=== PATIENT | female | born 1990 | race Caucasian/White ===

== ENCOUNTER → 2022-06-24 09:19 | Outpatient (BNVA) | payer MEDICAID, SELFPAY | PROVIDERS: PCP Physician Assistant; Visit Provider Physician Assistant Surgical ==

== ENCOUNTER 2022-07-19 09:12 | Outpatient (REF) | payer MEDICAID, SELFPAY ==
--- NOTE | ~2022-07-19 | XR_ITS ---
EXAMINATION: XR CHEST CLINICAL INFORMATION: Bariatric service evaluation. E66.01. COMPARISON: None available. TECHNIQUE: 2 views of the chest were obtained. FINDINGS: The lungs are clear. The vascularity is normal. There is mamillation right anteromedial hemidiaphragm. The costophrenic sulci are clear. The heart is normal in size. The hilar and mediastinal contours and visualized bony structures are unremarkable. XR/XR chest 2V IMPRESSION: Unremarkable examination.
[2022-07-19 10:24] LABS: MANUAL DIFF FLAG NO
[2022-07-19 10:43] LABS: Basophils Percent Auto 0.4 % (0-2); Eosinophils Absolute Auto 0.1 X10*3/uL (0.0-0.4); Eosinophils Percent Auto 1.7 % (0-4); Hematocrit 39.7 % (37.0-47.0); Hemoglobin 12.1 g/dl (12.0-16.0); Imm Gran Abs Auto 0.03 X10*3/uL (0.00-0.03); Imm Gran Pct Auto 0.4 % (0.0-0.4); Lymphocytes Absolute Auto 2.6 X10*3/uL (1.2-4.9); Lymphocytes Percent Auto 34.6 % (20-40); Mean Corpuscular HGB Conc 30.5 g/dl (31.0-35.0); Mean Corpuscular Hemoglobin 22.5 pg (27.0-33.0); Mean Corpuscular Volume 73.9 fL (80.0-98.0); Mean Platelet Volume 9.8 fL (9.4-12.3); Monocytes Absolute Auto 0.5 X10*3/uL (0.1-1.2); Monocytes Percent Auto 6.9 % (2-11); Neutrophils Absolute Auto 4.2 x10*3/uL (2.0-8.3); Platelet Count 332 X10*3/uL (160-400); Red Blood Count 5.37 X10*6/uL (4.20-5.50); Red Cell Distribution Width 16.2 % (11.0-16.0); White Blood Count 7.4 X10*3/uL (4.8-10.8)
[2022-07-19 10:51] LABS: Estimated Average Glucose 114 mg/dL; Hemoglobin A1c % 5.6 %
[2022-07-19 11:43] LABS: Alanine Aminotransferase 16 U/L (0-31); Alkaline Phosphatase 58 U/L (39-117); Anion Gap 11 (12-20); Aspartate Amino Transferase 15 U/L (5-31); Bilirubin Total 0.5 mg/dL (0.0-1.0); Blood Urea Nitrogen 12 mg/dL (9-16); C Reactive Protein 1.48 mg/dL (< or = 0.50); Calcium 9.3 mg/dL (8.4-10.2); Carbon Dioxide 27 mmol/L (22-29); Chloride 107 mmol/L (96-108); Cholesterol 155 mg/dL; Estimated Glomerular Filt Rate > 60; Glucose Random 89 mg/dL (60-115); HDL Cholesterol 53 mg/dL; Iron 60 mcg/dL (30-160); LDL Cholesterol Calculated 90 mg/dl; Percent Iron Saturation 17 % (15-50); Potassium 4.5 mmol/L (3.3-5.1); Sodium 140 mmol/L (135-145); Total Iron Binding Capacity 346 mcg/dL (228-428); Total Protein 7.3 g/dL (6.5-8.0); Triglycerides 61 mg/dL; Unsaturated Iron Binding 286 ug/dL
[2022-07-19 12:13] LABS: Ferritin 13 ng/mL (10-122); Folate 16.9 ng/mL (> or = 4.0); Insulin 16 uU/mL (2-29); Vitamin B12 328 pg/mL (200-900); Vitamin D 25-OH Total 23.7 ng/mL (>30)
[2022-07-20 18:54] LABS: Calcium (PTHI) 9.3 mg/dL (8.6-10.2); PTHI 55 pg/mL (16-77)
[2022-07-22 13:54] LABS: H Pylori Breath Test Negative (Negative)
[2022-07-23 16:28] LABS: Zinc 80 mcg/dL (60-130)
[2022-07-25 04:33] LABS: Vitamin B1 11 nmol/L (8-30)
[2022-07-27 16:28] LABS: Vitamin A 35 mcg/dL (38-98)
== END 2022-07-19 09:13 | disposition home or self-care (01) ==
LOC: HO.XRAY 09:12
PROVIDERS: PCP Physician Assistant; Visit Provider Physician Assistant Surgical
DX: E66.01 Morbid (severe) obesity due to excess calories (principal); R06.83 Snoring
CPT/HCPCS: 36415; 71046; 80053; 80061; 82306; 82607; 82728; 82746; 83013; 83036; 83525; 83540; 83970; 84425; 84443; 84590; 84630; 85025; 86140; 99202; 99211

== ENCOUNTER → 2022-07-30 10:14 | Outpatient (REF) | payer MEDICAID, SELFPAY ==
--- NOTE | 2022-07-30 10:23 | ECG_ITS ---
Test Reason : OBESITY Blood Pressure : / mmHG Vent. Rate : 059 BPM Atrial Rate : 059 BPM P-R Int : 148 ms QRS Dur : 096 ms QT Int : 408 ms P-R-T Axes : 044 005 019 degrees QTc Int : 403 ms Sinus bradycardia Otherwise normal ECG No previous ECGs available Referred By: Kingston Braun Electronically Signed By:JASMYN FREEMAN MD
== END ==
LOC: HO.CARD 10:14
PROVIDERS: PCP Physician Assistant; Visit Provider Surgery
DX: E66.01 Morbid (severe) obesity due to excess calories (principal)
CPT/HCPCS: 93005

== ENCOUNTER → 2022-08-06 09:50 | Outpatient (BNVA) | payer MEDICAID, SELFPAY | PROVIDERS: PCP Physician Assistant; Referring Provider Physician Assistant Surgical; Visit Provider Counselor Mental Health ==

== ENCOUNTER 2022-08-09 09:07 | Outpatient (REF) | payer MEDICAID, SELFPAY ==
--- NOTE | ~2022-08-09 | US_ITS ---
EXAMINATION: US COMPLETE ABDOMEN WITH LIVER ELASTOGRAPHY CLINICAL INFORMATION: Obesity. COMPARISON: None available. TECHNIQUE: Real-time imaging of the abdominal viscera. Noninvasive ultrasound liver fibrosis assessment is performed using Nora ElastPQ point quantification shear wave elastography (2D-SWE) with a C5-2 MHz transducer. Multiple elastography samples are obtained. FINDINGS: PANCREAS: Limited. The visualized pancreatic head and body are normal in appearance. The remainder of the pancreas is obscured from visualization by the overlying bowel gas. ABDOMINAL AORTA: The proximal, middle, and distal aortic segments are normal in caliber. INFERIOR VENA CAVA: Visualized portions are normal. LIVER: Normal. The liver demonstrates normal size, contour and echogenicity. No focal lesion or intrahepatic biliary duct dilatation. The right lobe measures 13.6 cm in length. The left lobe measures 7.8 cm in length. Portal flow is towards the liver (hepatopetal). Shear wave liver elastography median stiffness is 1.73 m/s (reference: normal median stiffness is 1.3 m/s or less). IQR/median stiffness to assess sampling precision is 0.24 (reference: good quality data set is IQR/median stiffness of 0.15 or less). GALLBLADDER: Normal. The gallbladder is physiologically distended without evidence of stones, sludge, polyps, wall thickening or pericholecystic fluid. COMMON BILE DUCT: Normal in caliber measuring 0.5 cm in diameter. RIGHT KIDNEY: Normal. No hydronephrosis. No renal calculi or focal parenchymal lesions. The kidney measures 10.5 cm in maximum dimension. LEFT KIDNEY: At the interpolar aspect, a 6 mm nonobstructing calculus is seen. There is mild pelviectasis, without elis hydronephrosis. No renal calculi or focal parenchymal lesions. The kidney measures 10.9 cm in maximum dimension. SPLEEN: Normal. The spleen measures 11.9 cm in maximum dimension. FREE FLUID: None. US/US abdomen comp w elastography IMPRESSION: 1. Liver elastography: Although measurements are suggestive of compensated advanced chronic liver disease, there is statistical variability of the sampling which decreases accuracy. 2. A 6 mm nonobstructing left renal calculus is seen. 3. Technically limited ultrasound examination of the pancreas. REFERENCE: Society of Radiologists in Ultrasound Liver Stiffness Thresholds (2020): LIVER STIFFNESS THRESHOLDS: *Liver Stiffness equal or less than 1.3 m/s: High probability of being normal. *Liver Stiffness less than 1.7 m/s: In the absence of other known clinical signs, rules out compensated advanced chronic liver disease. *Liver Stiffness 1.7-2.1 m/s: Suggestive of compensated advanced chronic liver disease but need further test for confirmation. *Liver Stiffness over 2.1 m/s: Rules in compensated advanced chronic liver disease. *Liver Stiffness over 2.4 m/s: Suggestive of clinically significant portal hypertension. QUALITY OF DATA SET: *IQR/Median value equal or less than 0.15 implies a quality data set. *IQR/Median value over 0.15 implies a poor quality data set. SIGNIFICANT CHANGE FROM PRIOR EXAM: Significant change if liver stiffness measurement is 10% or greater from prior exam. OTHER CONSIDERATIONS: The stage of liver fibrosis may be overestimated in the setting of acute hepatitis, liver inflammation, elevated liver function tests, hepatic vascular congestion, obstructive cholestasis, non-fasting state, and infiltrative diseases such as amyloidosis and lymphoma. In some patients with NAFLD, the liver stiffness thresholds for compensated advanced chronic liver disease may be lower. In causes other than viral hepatitis and NAFLD, liver stiffness thresholds are not well established.
== END 2022-08-09 09:08 | disposition home or self-care (01) ==
LOC: HO.US 09:07
PROVIDERS: PCP Physician Assistant; Visit Provider Physician Assistant Surgical
DX: E66.01 Morbid (severe) obesity due to excess calories (principal)
CPT/HCPCS: 76705; 76981

== ENCOUNTER → 2022-08-19 10:35 | Outpatient (BNVA) | payer MEDICAID, SELFPAY | PROVIDERS: PCP Physician Assistant; Referring Provider Physician Assistant Surgical; Visit Provider Dietitian, Registered | DX: E66.9 Obesity, unspecified (principal); Z71.3 Dietary counseling and surveillance | CPT/HCPCS: 97802 ==

== ENCOUNTER 2022-08-30 15:00 | Outpatient (AMB) | payer OTHER, SELFPAY ==
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
== END 2022-08-30 15:30 | disposition home or self-care (01) ==
LOC: HO.HBST 15:07
PROVIDERS: PCP Physician Assistant; Visit Provider Counselor Mental Health
DX: F43.9 Reaction to severe stress, unspecified (principal); F50.9 Eating disorder, unspecified; Z63.8 Other specified problems related to primary support group
CPT/HCPCS: 90832

== ENCOUNTER → 2022-08-30 15:00 | Outpatient (BNVA) | payer OTHER, SELFPAY | PROVIDERS: PCP Physician Assistant; Visit Provider Counselor Mental Health ==

== ENCOUNTER 2022-09-07 13:21 | Outpatient (AMB) | payer MEDICAID, SELFPAY ==
--- NOTE | 2022-09-07 13:30 | MHC.OFFVISWM ---
Intake VS Expanded 09/07/22 13:47 Height 5 ft 3 in Weight 240 lb BMI 42.5 BP 113/72 Blood Pressure Location Rt brachial Blood Pressure Position Sitting Pulse 68 Pulse Source Pulse Oximeter Temp 98.1 F Temperature Source Temporal Artery Scan Pulse Oximetry 100 Oxygen Delivery Method Room Air Body Fat 112.6 Body Fat Percentage 47.0 Free Fat Mass 127.2 Muscle Mass 120.8 Visceral Mass 12.0 Water Mass 91.2 BMR 1,826 Intake Visit Reasons: (OV) F/U SWL Wire Coating Machine Operator Required: Yes Wire Coating Machine Operator Name: office cmi Allergies No Known Allergies Allergy (Verified 09/07/22 13:43) Medication List - Last Reconciled 09/07/22 by RAJANI Marx cholecalciferol (vitamin D3) 125 mcg PO DAILY 90 days cyanocobalamin (vitamin B-12) 500 mcg PO DAILY 90 days vitamin A palmitate 3,000 mcg PO DAILY 90 days HPI HPI Comments History of Present Illness Details The patient is a pleasant 32 year old female who returns to the clinic for pre-operative surgical weight loss management. They were last seen in the office on 07/19/22, recorded weight at that time was 255.6 pounds, with a BMI of 45.3. Today's weight is 240 pounds and BMI is 42.5. There has been a weight loss of 15.6 pounds since initiating the surgical weight loss program on 07/19/22 with a total body weight loss of 6.1 %. Pre op work up completed as follows: SWL classes:? 06/05 BH appts: f/u 09/20/22 ? ? RD appts: f/u 09/16/22 Labs: 07/19/22-low D, [id number]:328 H. pylori: 07/19/22-neg CXR: 07/19/22-nad EK07/30/22-sinus edgar ABD U/S: 08/09/22-fatty liver UGI: not yet done The patient reports she had trouble at the beginning but now is doing well. She was not following the original plan and when she saw RD, meal plan was changed to Current meal plan includes: 2 Premier Protein shakes First shake, at 7am, 2 scoops Second shake at? 11am, 2 scoops Dinner at 4pm (5 forks of protein and 5 forks of salad/vegetables). 1 protein bar (fit crunch bars at [employer], [facility], or [employer]) at 5pm-7pm. Drinking 32 oz of water Current exercise plan includes: bike, treadmill, 180 calories 5 days per week PFSH Surgical History Hx of section Family History Mother Hypertension Arthritis Asthma Daughter No problems noted. Son No problems noted. Social History Alcohol intake: never Patient Tobacco Use Status: Never used Tobacco Physical Exam Vital Signs: Last Vital Signs Temp 98.1 F 09/07/22 13:47 Pulse 68 09/07/22 13:47 BP 113/72 09/07/22 13:47 Pulse Ox 100 09/07/22 13:47 Oxygen Delivery Method Room Air 09/07/22 13:47 BMI result Body Mass Index 42.5 Const General: healthy appearing and no acute distress Resp Effort & Inspection: normal respiratory effort Auscultation: clear to auscultation bilaterally Cardio Rate: regular rate Rhythm: regular rhythm GI Auscultation: normal bowel sounds Extrem General: Yes normal to inspection Assessment & Plan Assessment & Plan (1) Morbid obesity: Code(s): E66.01 - Morbid (severe) obesity due to excess calories Plan: change meal plan: 2 Premier Protein shakes First shake, at 7am, 2 scoops Second shake at? 11am, 1 scoop Dinner at 4pm (7 forks of protein and 7 forks of salad/vegetables). 1 protein bar (fit crunch bars at [employer], [facility], or [employer]) at 5pm-7pm. Increase exercise to goal of 300 maciej treadmill speed 3 incline 0-10. Increase water to 48-64 oz daily. Coding Level of Care Code Est Pt Level 3 (45708) Diagnoses Morbid obesity E66.01
[2022-09-07 13:47] VITALS: BP 113/72; PULSE 68; TEMP 36.7; O2SAT 100; BMI 42.5
== END 2022-09-07 14:15 | disposition home or self-care (01) ==
PROVIDERS: PCP Physician Assistant; Visit Provider Physician Assistant Surgical
DX: E66.01 Morbid (severe) obesity due to excess calories (principal); Z68.41 Body mass index [BMI] 40.0-44.9, adult
CPT/HCPCS: 99213

== ENCOUNTER → 2022-09-07 13:21 | Outpatient (BNVA) | payer MEDICAID, SELFPAY | PROVIDERS: PCP Physician Assistant; Visit Provider Physician Assistant Surgical | DX: E66.01 Morbid (severe) obesity due to excess calories (principal); Z68.41 Body mass index [BMI] 40.0-44.9, adult | CPT/HCPCS: 99213 ==

== ENCOUNTER 2022-09-13 09:59 | Emergency (ER) | payer MEDICAID, SELFPAY ==
--- NOTE | ~2022-09-13 | XR_ITS ---
EXAMINATION: X-ray lumbar spine X-ray sacrum and coccyx CLINICAL INFORMATION: Back pain COMPARISON: None TECHNIQUE: Lumbar spine 3 views. Sacrum and coccyx 3 views. FINDINGS: Lumbar spine: Anatomic alignment. Vertebral body heights are maintained. No evidence of acute fracture. Disc spaces are maintained. No suspicious soft tissue calcification. Nonobstructive bowel gas pattern. Sacrum and coccyx: SI joints are intact. Visualized pelvic bones intact. No acute fracture or dislocation. XR/XR lumbar spine 2-3V IMPRESSION: No evidence of acute osseous abnormality.
--- NOTE | ~2022-09-13 | XR_ITS ---
EXAMINATION: X-ray lumbar spine X-ray sacrum and coccyx CLINICAL INFORMATION: Back pain COMPARISON: None TECHNIQUE: Lumbar spine 3 views. Sacrum and coccyx 3 views. FINDINGS: Lumbar spine: Anatomic alignment. Vertebral body heights are maintained. No evidence of acute fracture. Disc spaces are maintained. No suspicious soft tissue calcification. Nonobstructive bowel gas pattern. Sacrum and coccyx: SI joints are intact. Visualized pelvic bones intact. No acute fracture or dislocation. XR/XR sacrum coccyx min 2V IMPRESSION: No evidence of acute osseous abnormality.
[2022-09-13 12:00] VITALS: BP 108/62; PULSE 82; RESP 16; TEMP 36.3; O2SAT 100; BMI 42.5
--- NOTE | 2022-09-13 12:01 | ED_ITS ---
HPI - General Adult General Chief complaint: Back Pain/Injury Stated complaint: back pain lower Time Seen by Provider: 09/13/22 16:31 Source: patient Mode of arrival: ambulatory Limitations: no limitations History of Present Illness HPI narrative: patient is a 32-year-old female past medical history of obesity presenting to the emergency department with a chief complaint of back pain. patient reports that the pain began 1 week ago but yesterday it got worse, pain started after lifting a heavy laundry bin. Patient reports that the pain is mostly on her right side w/ radiation to RLE above the knee. Patient reports that it hurts to stay seated for extended periods of time. Patient reports she is able to ambulate small distances at time. Patient reports difficulty getting up from her seat or sitting down. patient reports slight improvement when using a heat pack on the area. Patient denies any incontinence or red flag symptoms such as saddle paresthesias, urine/ bowel incontinence/retention. Patient denies fever, chills, nausea, vomiting, headache, vision changes, numbness, tingling, shortness of breath, chest pain. Related Data Previous Rx's Medication Instructions Recorded cholecalciferol (vitamin D3) 125 125 mcg PO DAILY 90 days #90 caps 07/19/22 mcg (5,000 unit) capsule cyanocobalamin (vitamin B-12) 500 500 mcg PO DAILY 90 days #90 tabs 07/19/22 mcg tablet vitamin A palmitate 3,000 mcg 3,000 mcg PO DAILY 90 days #90 caps 07/28/22 (10,000 unit) capsule cyclobenzaprine 10 mg tablet 10 mg PO BEDTIME PRN muscle spasm 09/13/22 #7 tabs ketorolac 10 mg tablet 10 mg PO TID PRN pain 5 days #15 09/13/22 tabs lidocaine 5 % topical patch 1 patch topical DAILY PRN pain #15 09/13/22 ea Allergies Allergy/AdvReac Type Severity Reaction Status Date / Time No Known Allergies Allergy Verified 09/13/22 12:00 Review of Systems Review of Systems: Constitutional : No Weight loss, No Fever, No Chills, ENT/Mouth : No Hearing loss, No Ear Pain, No Nasal Congestion, No Sinus Pain, No Hoarseness, No sore throat, No Rhinorrhea, No Swallowing Difficulty Cardiovascular : No Chest Pain, No SOB Respiratory : No Cough, No Dyspnea Gastrointestinal : No Nausea, No Vomiting, No Diarrhea, No abdominal Pain, No Hematochezia, No Melena Genitourinary : No Dysuria, No Urinary Frequency, No Hematuria, No Urinary Incontinence, Musculoskeletal : positive back pain Skin : No Skin Lesions, No rash Neuro : No Weakness, No Numbness, No Paresthesias, no loss of bowel or bladder incontinence, no saddle anesthesia Yes all other systems are reviewed and are negative [facility] Past Medical History Attestation statement: The following information was validated with the patient. Source: old records reviewed and nursing notes reviewed Surgical History Hx of section Family History Family History Mother Hypertension Arthritis Asthma Daughter No problems noted. Son No problems noted. Social History Social History Alcohol intake: never Patient Tobacco Use Status: Never used Tobacco Advance Directives: No Advance Directives Information Provided: Yes Physical Exam ED Vital Signs: Vital Signs - 24 hr 09/13/22 12:00 09/13/22 16:38 Temperature 97.4 F 97.9 F Pulse Rate 82 84 Respiratory Rate 16 20 Blood Pressure 108/62 122/64 Pulse Oximetry 100 99 Oxygen Delivery Method Room Air Room Air BMI result Body Mass Index 42.5 vss Appearance: Alert.? Oriented X3.? No acute distress.? Head: Normocephalic, atraumatic, no step-offs or deformities Eyes: Pupils equal, round and reactive to light.? Neck: Normal inspection.? Neck supple.? CVS: Normal heart rate and rhythm.? Pulses normal.? Respiratory: No respiratory distress.? Breath sounds normal.? Abdomen: Soft and nontender.? Skin: Skin warm and dry.? Normal skin color.? Normal skin turgor.? Extremities: No lower extremity edema.? No calf ttp. 5/5 strength to bilateral upper and lower extremities Back: No midline tenderness, no C-spine tenderness, limited range of motion due to pain, no CVA tenderness bilaterally. Lower back tenderness on b/l to paraspinous muscles in lumbar region throughout worse on R. Neuro: Oriented X 3.? No motor deficit.? No sensory deficit. CN 2-12 intact. Amulatory with steady gait, no saddle paresthesias. Course Course Course Narrative: This is an RME: Additional HPI, ROS, PE not included below will be deferred to primary provider. This is a 20-rwvo-gsg-female, with a history of hypertension, arthritis, and asthma, presenting to the emergency department with complaints of back pain x 3-4 days. No hx of back pain in the past. Pain radiates down into her right leg. No urinary/bowel incontinence. No urinary symptoms. No saddle anesthesia. Ambulating with walker due to pain. VSS. Plan: Lumbar, coccyx xray obtained. Pt medicated with toradol 15mg IM. Reevaluation(s) Reevaluation #1: patient reports some improvement with Toradol order an additional 15 mg to give a total 30 mg IM. Will also give p.o. morphine as patient did not drive herself here. Lidoderm patch also helped however pain is not completely gone. Patient mobile, ambulatory. After pain control patient to be discharged home. Sign out given to Opal pending improvment Time: 18:19 Medications Administered Discontinued Medications Generic Name Dose Route Start Last Admin Trade Name Freq PRN Reason Stop Dose Admin Ketorolac Tromethamine 15 mg 09/13/22 12:06 09/13/22 12:08 Ketorolac Tromethamine 15 Mg/Ml Vial IM 09/13/22 12:07 15 mg ONCE ONE Administration Lidocaine 1 patch 09/13/22 16:31 09/13/22 16:55 Lidocaine 4 % Patch Adh..Patch TRANSDERMA 09/13/22 16:32 1 patch ONCE ONE Administration Protocol Medical Decision Making Medical Decision Making MDM Narrative: Patient is a 32-year-old female presenting with lower back pain X 1 week no red flag sx Physical exam showed Lower back tenderness on b/l to paraspinous muscles in lumbar region throughout worse on R. Ambulatory no saddle paresthesias. Likely sciatica versus lumbago vs lumbar radiculopathy . Unlikely vertebral fracture, pyelonephritis, herniated discs, cauda equina, cord compression, epidural abscess. other differential includes herniated disc Plan: Labs, imaging, pain control Differential Diagnosis Differential Diagnoses: The differential diagnosis associated with the presentation includes Likely sciatica versus lumbago vs lumbar radiculopathy . Unlikely vertebral fracture, pyelonephritis, herniated discs, cauda equina, cord compression, epidural abscess. other differential includes herniated disc Admission/Observation Consideration of admission/observation: Escalation of care including admission/observation considered not likely Independent Interpretation I performed an independent interpretation of an: Plain X-Ray (XR/XR sacrum coccyx min 2V IMPRESSION: No evidence of acute osseous abnormality.XR/XR lumbar spine 2-3V IMPRESSION: No evidence of acute osseous abnormality.) Radiology Impression Discussion of test interpretation with radiology: I have reviewed the radiologist's reading. Prescription Management I considered prescription management with: Pain Medication Core Measures AMI core measures followed: Yes Measure exclusions: not indicated Discharge Plan Discharge Clinical Impression: Lumbar radiculopathy Patient Disposition: Home, Self-Care Instructions: Acute Low Back Pain (ED), Lumbar Radiculopathy (ED) Additional Instructions: Take your medications as prescribed. If you were prescribed antibiotics today, it is important that you take your medication to their entirety, do not skip any doses, do not finish them early. Follow-up with your primary care provider this week. Follow-up with [facility] pain persist Return to the emergency department with new or worsening symptoms. Such as fevers, chills, chest pain, shortness of breath, nausea, vomiting, dizziness, headache, vision changes, lethargy In case of emergency call 911 Toradol has been sent to your pharmacy, you tolerated this well in the department. Please take this as prescribed do not take this with ibuprofen, or other NSAIDs, do not mix this with alcohol. Side effects of this medication including increased risk for bleeding and possible kidney injury. XR/XR sacrum coccyx min 2V IMPRESSION: No evidence of acute osseous abnormality.XR/XR lumbar spine 2-3V IMPRESSION: No evidence of acute osseous abnormality. Prescriptions: New cyclobenzaprine 10 mg tablet 10 mg PO BEDTIME PRN (Reason: muscle spasm) Qty: 7 0RF ketorolac 10 mg tablet 10 mg PO TID PRN (Reason: pain) 5 Days Qty: 15 0RF lidocaine 5 % adhesive patch,medicated 1 patch topical DAILY PRN (Reason: pain) Qty: 15 0RF Rx Instructions: leave on most painful area for up to 12 hrs No Action cholecalciferol (vitamin D3) 125 mcg (5,000 unit) capsule 125 mcg PO DAILY 90 Days Qty: 90 1RF cyanocobalamin (vitamin B-12) 500 mcg tablet 500 mcg PO DAILY 90 Days Qty: 90 0RF vitamin A palmitate 3,000 mcg (10,000 unit) capsule 3,000 mcg PO DAILY 90 Days Qty: 90 0RF Referrals: Jie Floyd PA-C [Primary Care Provider] - 2 days [facility] [Provider Group] - 1 week Stand Alone Forms: Work/School Release
[2022-09-13] MEDS: Ketorolac Tromethamine 15 MG/ML VIAL IM ×2 (12:08→18:40)
[2022-09-13 16:38] VITALS: BP 122/64; PULSE 84; RESP 20; TEMP 36.6; O2SAT 99
[2022-09-13] MEDS: Lidocaine 4 % Patch ADH..PATCH 1 PATCH TRANSDERMA (16:55)
[2022-09-13] MEDS: Morphine Sulfate Immed Release 15 MG TABLET PO (18:40)
== END 2022-09-13 19:02 | disposition home or self-care (01) ==
PROVIDERS: Emergency Provider Emergency Medicine; PCP Physician Assistant
DX: M54.16 Radiculopathy, lumbar region (principal); E66.01 Morbid (severe) obesity due to excess calories; Z68.41 Body mass index [BMI] 40.0-44.9, adult
CPT/HCPCS: 72100; 72220; 96372; 99283; 99284; J1885

== ENCOUNTER → 2022-09-16 11:56 | Outpatient (BNVA) | payer MEDICAID, SELFPAY | PROVIDERS: PCP Physician Assistant; Visit Provider Dietitian, Registered | DX: E66.9 Obesity, unspecified (principal); Z71.3 Dietary counseling and surveillance | CPT/HCPCS: 97803 ==

== ENCOUNTER 2022-09-21 10:03 | Outpatient (REF) | payer MEDICAID, SELFPAY | END 2022-09-21 10:04 | disposition home or self-care (01) | LOC: HO.XRAY 10:03 | PROVIDERS: PCP Physician Assistant; Visit Provider Physician Assistant Surgical | DX: Z13.89 Encounter for screening for other disorder (principal) ==

== ENCOUNTER 2022-09-30 13:31 | Outpatient (AMB) | payer MEDICAID, SELFPAY ==
--- NOTE | 2022-09-30 13:35 | MHC.OFFVISWM ---
Intake VS Expanded 09/30/22 13:43 Height 5 ft 3 in Weight 234 lb 12.8 oz BMI 41.6 BP 109/64 Blood Pressure Location Lt brachial Blood Pressure Position Sitting Pulse 84 Pulse Source Pulse Oximeter Temp 97.7 F Temperature Source Tympanic Pulse Oximetry 100 Oxygen Delivery Method Room Air Body Fat 108.2 Body Fat Percentage 46.1 Free Fat Mass 126.6 Muscle Mass 120.0 Visceral Mass 12.0 Water Mass 90.8 BMR 1,810 Intake Visit Reasons: (OV) F/U SWL Structural Test Engineer Required: Yes Structural Test Engineer Name: office cmi Allergies No Known Allergies Allergy (Verified 09/13/22 12:00) HPI HPI Comments History of Present Illness Details The patient is a pleasant 32 year old female who returns to the clinic for pre-operative surgical weight loss management. They were last seen in the office on 09/07/22, recorded weight at that time was 240 pounds, with a BMI of 42.5. Today's weight is 234.8 pounds and BMI is 41.6. There has been a weight loss of 20.8 pounds since initiating the surgical weight loss program on 07/19/22 with a total body weight loss of 8.1 %. Pre op work up completed as follows: SWL classes:? 06/05 BH appts: f/u 10/01/22 ? ? RD appts: needs f/u Labs: 07/19/22-low D, B12:328 H. pylori: 07/19/22-neg CXR: 07/19/22-nad EK07/30/22-sinus edgar ABD U/S: 08/09/22-fatty liver UGI: 11/23/22 The patient reports she had trouble at the beginning but now is doing well.? She had hurt her back 3-4 weeks ago and describes the pain as travelling down the back of her leg to her mid thigh, describing it as sharp initially with pins and needles, and then now a dull ache, and was seen by covering her PCP. who told her to stop exercising Current meal plan includes: 2 Premier Protein shakes First shake, at 7am, 2 scoops Second shake at? 11am, 1 scoop Dinner at 4pm (7 forks of protein and 7 forks of salad/vegetables). 1 protein bar (fit crunch bars at [employer], [employer], or [employer]) at 5pm-7pm. Drinking 48-64 oz of water Current exercise plan includes: She is walking in the pool, some treadmill PFSH Surgical History Hx of section Family History Mother Hypertension Arthritis Asthma Daughter No problems noted. Son No problems noted. Social History Alcohol intake: never Patient Tobacco Use Status: Never used Tobacco Physical Exam Vital Signs: Last Vital Signs Temp 97.7 F 09/30/22 13:43 Pulse 84 09/30/22 13:43 BP 109/64 09/30/22 13:43 Pulse Ox 100 09/30/22 13:43 Oxygen Delivery Method Room Air 09/30/22 13:43 BMI result Body Mass Index 41.6 Const General: healthy appearing and no acute distress Resp Effort & Inspection: normal respiratory effort Auscultation: clear to auscultation bilaterally Cardio Rate: regular rate Rhythm: regular rhythm GI Auscultation: normal bowel sounds Back/Spine/Pelvis Other: left l3-4 tenderness incr w forward flexion Extrem General: Yes normal to inspection Assessment & Plan Assessment & Plan (1) Morbid obesity: Code(s): E66.01 - Morbid (severe) obesity due to excess calories Plan: reminded of upcoming appts. Encouraged to continue meal plan and exercises in pool F/u with RD and BH pending UGI october refer to Dr De Leon then me until ready for surgery (2) Back pain: Code(s): M54.9 - Dorsalgia, unspecified Plan: L3-4 radiculopathy Pt awaiting ccall from PCP for PT referral. Continue anti spasmodics as needed Coding Level of Care Code Est Pt Level 3 (73980) Diagnoses Morbid obesity E66.01 Back pain M54.9
[2022-09-30 13:43] VITALS: BP 109/64; PULSE 84; TEMP 36.5; O2SAT 100; BMI 41.6
== END 2022-09-30 14:07 | disposition home or self-care (01) ==
PROVIDERS: PCP Physician Assistant; Visit Provider Physician Assistant Surgical
DX: E66.01 Morbid (severe) obesity due to excess calories (principal); M54.9 Dorsalgia, unspecified
CPT/HCPCS: 99213

== ENCOUNTER → 2022-09-30 13:31 | Outpatient (BNVA) | payer MEDICAID, SELFPAY | PROVIDERS: PCP Physician Assistant; Visit Provider Physician Assistant Surgical | DX: E66.01 Morbid (severe) obesity due to excess calories (principal); M54.9 Dorsalgia, unspecified; Z68.41 Body mass index [BMI] 40.0-44.9, adult | CPT/HCPCS: 99213 ==

== ENCOUNTER 2022-10-01 16:00 | Outpatient (AMB) | payer OTHER, SELFPAY ==
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
== END 2022-10-01 16:42 | disposition home or self-care (01) ==
LOC: HO.HBST 16:19
PROVIDERS: PCP Physician Assistant; Visit Provider Counselor Mental Health
DX: F43.9 Reaction to severe stress, unspecified (principal); F50.9 Eating disorder, unspecified; Z63.8 Other specified problems related to primary support group
CPT/HCPCS: 90834

== ENCOUNTER → 2022-10-01 16:00 | Outpatient (BNVA) | payer OTHER, MEDICAID, SELFPAY | PROVIDERS: PCP Physician Assistant; Visit Provider Counselor Mental Health ==

== ENCOUNTER 2022-10-07 12:45 | Outpatient (AMB) | payer MEDICAID, SELFPAY ==
--- NOTE | 2022-10-07 12:54 | MHC.OFFVISWM ---
Intake VS Expanded 10/07/22 13:01 Height 5 ft 3 in Weight 233 lb 9.6 oz BMI 41.4 BP 104/60 Blood Pressure Location Lt brachial Blood Pressure Position Sitting Pulse 75 Temp 98.4 F Temperature Source Temporal Artery Scan Pulse Oximetry 98 Oxygen Delivery Method Room Air Body Fat 107.6 Body Fat Percentage 46.1 Free Fat Mass 125.8 Muscle Mass 119.4 Visceral Mass 12.0 Water Mass 90.4 BMR 1,801 Intake Visit Reasons: ([place]AN) F/U SWL ([place]) Intake Note: Patient here to f/u SWL. Last seen by Kingston Braun on 09-30-22. Patient reports no changes in medical hx or medications. Heavy Equipment Sales Associate Required: Yes Heavy Equipment Sales Associate Name: GENARO Yu Information Interpreted: clinical only Film Flat Inspector: Film Flat Inspector Present Accompanied by: daughter Delicia Allergies No Known Allergies Allergy (Verified 10/07/22 12:58) Medication List - Last Reconciled 10/07/22 by Zelalem De Leon MD cholecalciferol (vitamin D3) 125 mcg PO DAILY 90 days cyanocobalamin (vitamin B-12) 500 mcg PO DAILY 90 days cyclobenzaprine 10 mg PO BEDTIME PRN lidocaine 5% 1 patch topical DAILY PRN vitamin A palmitate 3,000 mcg PO DAILY 90 days HPI HPI Comments History of Present Illness Details The patient is a 32-year-old woman who reports a lifelong struggle with her weight which is been refractory to medical management. She has tried fad diets with no durable weight loss. She entered the surgical weight loss program Jun, 2021 at a weight of 255.6 lb/BMI 45.3. She reports her heaviest weight is 260 lb Comorbidities include back pain and snoring, her sleep study from 09/21/2022 confirmed snoring but there was no obstructive/apneic episodes. Her past surgical history includes and an unknown surgical sterilization procedure, patient is not sure whether or was done open or laparoscopically. She notes no plans for . She states she is tolerating her current diet without difficulty Her current exercise includes treadmill for 30 minutes/stairs for 10 minutes and 30 minutes of assorted weight training, 3-4 times per week GERD 10 BUCK 5 ESS 16 QOL 133 Pre op work up completed as follows: SWL classes:? 06/05 [facility] appts: f/u 10/01/22 ? ? RD appts: needs f/u Labs: 5/22/23-low D, B12:328 H. pylori: 07/19/22-neg CXR: 07/19/22-nad EK07/30/22-sinus edgar ABD U/S: 08/09/22-fatty liver UGI: 11/23/22 [facility] Surgical History Hx of section Family History Mother Hypertension Arthritis Asthma Daughter No problems noted. Son No problems noted. Social History Alcohol intake: never Patient Tobacco Use Status: Never used Tobacco Physical Exam The patient is non-toxic & in good spirits NC/AT, PERRLA, EOMI Mood, affect & judgment all appear appropriate Sclera anicteric conjunctiva pink and moist Oropharynx is clear with no aphthous ulcers, Mallampati class 2, mucous membranes moist Neck is supple with no masses, adenopathy or bruits Thyroid is nontender and free of dominant masses Heart is regular, normal S1-S2 no rubs or murmurs Lungs are clear and equal anteriorly with no audible wheezing, rubs or dullness to percussion Abdomen is obese & nontender with no demonstrable hernias. No HSM, rebound, rigidity, guarding, masses or bruits are present. Rectal exam is deferred Skin has good turgor and is free of rashes Extremities free of cyanosis clubbing edema Results Reviewed Results Reviewed: Labs from 07/19/2022 Hemoglobin 12.1 with hypochromic indices, white count normal at 7.4, platelet count 332 K BUN 12, creatinine 0.74, electrolytes within normal limits Hemoglobin A1c 5.6 CRP elevated at 1.48 Lipids WNL Vitamins a and D were low & are being replaced Helicobacter pylori was negative Diagnostic imaging include chest x-ray-NAD Abdominal ultrasound 08/09/2022 shows liver stiffness/fibrosis Upper GI pending Assessment & Plan Assessment & Plan (1) Morbid obesity: Code(s): E66.01 - Morbid (severe) obesity due to excess calories (2) Snoring: Code(s): R06.83 - Snoring (3) Back pain: Code(s): M54.9 - Dorsalgia, unspecified (4) Trauma and stressor-related disorder: Code(s): F43.9 - Reaction to severe stress, unspecified (5) Liver fibrosis: Code(s): K74.00 - Hepatic fibrosis, unspecified Plan The patient is congratulated on her ongoing healthy lifestyle changes to affect weight loss. Using a teaching legal services manager, I explained the importance of a high-protein/high-fiber diet and the importance of minimizing fats and carbohydrates in conjunction with exercise and sleeve gastrectomy. The patient noted that she was interested in a sleeve gastrectomy. We did review the option of continued medical weight loss, gastric bypass and sleeve gastrectomy. I reviewed the inherent risks of this procedure which include, but are not limited to: Bleeding that could require another operation or blood transfusion; the inherent risks of transfusion reaction infectious disease from blood transfusions; the risk of staple line leaks that could cause sepsis, multi-system organ failure and ; the risk of mesenteric or deep vein thrombosis of the lower extremities that could cause a fatal pulmonary embolism was reviewed; the risk of GERD that could require conversion to gastric bypass was discussed; the risk of recurrent hiatal hernia, especially in the setting of weight regain was reviewed. The risk of weight regain if maladaptive eating and sedentary behavior continue was discussed. The importance of proper diet and increased activity to augment surgical weight loss and the fact that no operation would result in weight loss of poor dietary decisions and sedentary behavior are resumed were discussed at length and apparently understood. Risks related to in the postoperative time frame was reviewed and apparently understood. Risk of cholelithiasis that can be symptomatic at a later date was also discussed. Patient seems to be in excellent candidate and is interested in sleeve gastrectomy. Typical perioperative course including laparoscopic surgery, time in the hospital, need for bowel prep in continuing to follow the diet was reviewed in the patient's questions seemed to be satisfactorily answered. She is encouraged to write down any questions for her next visit, continue her workup with upper GI and follow-up with Kingston Braun PA-C and myself. Coding Level of Care Code Est Pt Level 4 (94628) Diagnoses Morbid obesity E66.01 Snoring R06.83 Back pain M54.9 Trauma and stressor-related disorder F43.9 Liver fibrosis K74.00
[2022-10-07 13:01] VITALS: BP 104/60; PULSE 75; TEMP 36.9; O2SAT 98; BMI 41.4
== END 2022-10-07 13:44 | disposition home or self-care (01) ==
PROVIDERS: PCP Physician Assistant; Visit Provider Surgery
DX: E66.01 Morbid (severe) obesity due to excess calories (principal); R06.83 Snoring; M54.9 Dorsalgia, unspecified; F43.9 Reaction to severe stress, unspecified; K74.00 Hepatic fibrosis, unspecified
CPT/HCPCS: 99214

== ENCOUNTER → 2022-10-07 12:45 | Outpatient (BNVA) | payer MEDICAID, SELFPAY | PROVIDERS: PCP Physician Assistant; Visit Provider Surgery | DX: E66.01 Morbid (severe) obesity due to excess calories (principal); Z68.41 Body mass index [BMI] 40.0-44.9, adult; R06.83 Snoring; M54.9 Dorsalgia, unspecified; F43.9 Reaction to severe stress, unspecified; K74.00 Hepatic fibrosis, unspecified | CPT/HCPCS: 99212 ==

== ENCOUNTER 2023-11-29 13:28 | Emergency (ER) | payer MEDICAID, SELFPAY ==
--- NOTE | ~2023-11-29 | CT_ITS ---
EXAMINATION: CT HEAD WITHOUT CONTRAST CLINICAL INFORMATION: New headache. Blurred vision. COMPARISON: None available. TECHNIQUE: Contiguous axial imaging was performed from the skull base to vertex without intravenous administration of contrast. This CT examination was performed using dose optimization techniques as appropriate, variously including the following: *Automated exposure control. *Adjustment of mA and/or kV according to patient size (this includes techniques or standardized protocols for targeted exams where dose is matched to indication/reason for exam; i.e. extremities or head). *Use of iterative reconstruction technique. DLP: 680 mGy-cm FINDINGS: There is no evidence of acute intracranial hemorrhage or edematous territorial infarction. Oreilly-white matter differentiation is preserved. There is no abnormal attenuation within the brain parenchyma. Proportional prominence of the ventricles and sulcal spaces without evidence of obstructive hydrocephalus. No abnormal mass effect or midline shift. No extra-axial fluid collections. No acute soft tissue or osseous abnormalities. Mild mucosal thickening of the paranasal sinuses. Moderate fluid within the right middle ear cavity. The left mastoid air cells and middle ear cavity are clear. CT/CT head/brain wo IV con IMPRESSION: 1. No evidence of acute intracranial hemorrhage or edematous territorial infarction. 2. Moderate fluid within the right middle ear cavity. Electronically signed by: Ryan Norman DO 11/29/2023 07:01 PM EDT
[2023-11-29 13:53] VITALS: BP 125/75; PULSE 65; RESP 18; TEMP 36.9; O2SAT 100; BMI 45.2
--- NOTE | 2023-11-29 13:57 | ED_ITS ---
HPI - General Adult General Chief complaint: Headache Stated complaint: Headache, nausea Time Seen by Provider: 11/29/23 16:18 Source: patient Mode of arrival: ambulatory Limitations: no limitations History of Present Illness HPI narrative: Patient is a 33-year-old female who presents emergency department for evaluation. Reports over the past week she was experiencing an intermittent frontal headache with pain along her forehead. Had associated nausea but no vomiting. The pain is described as a pressure sensation. She admits to having blurred vision as well as dizziness. She has experienced headaches in the past but she states that this feels different than anything she has previously experienced. For the past 2 days her headache has been more constant it is described as a dull pressure. She denies any recent URI symptoms. No associated fevers or chills Related Data Previous Rx's ?Medication ?Instructions ?Recorded cholecalciferol (vitamin D3) 125 125 mcg PO DAILY 90 days #90 caps 07/19/22 mcg (5,000 unit) capsule cyanocobalamin (vitamin B-12) 500 500 mcg PO DAILY 90 days #90 tabs 07/19/22 mcg tablet vitamin A palmitate 3,000 mcg 3,000 mcg PO DAILY 90 days #90 caps 07/28/22 (10,000 unit) capsule cyclobenzaprine 10 mg tablet 10 mg PO BEDTIME PRN muscle spasm 09/13/22 #7 tabs lidocaine 5 % topical patch 1 patch topical DAILY PRN pain #15 09/13/22 ea cetirizine 10 mg tablet 10 mg PO DAILY #10 tabs 11/29/23 fluticasone propionate 50 1 spray intranasal BID 14 days #16 11/29/23 mcg/actuation nasal grams spray,suspension (Flonase Allergy Relief) Allergies Allergy/AdvReac Type Severity Reaction Status Date / Time No Known Allergies Allergy Verified 11/29/23 13:53 Review of Systems Review of Systems: Yes all other systems are reviewed and are negative PMFSH Past Medical History Attestation statement: The following information was validated with the patient. Source: old records reviewed Surgical History Hx of section Family History Family History Mother Hypertension Arthritis Asthma Daughter No problems noted. Son No problems noted. Social History Social History Alcohol intake: never Patient Tobacco Use Status: Never used Tobacco Advance Directives: No Do you have a plan to hurt others: No Plan Physical Exam ED Vital Signs: Vital Signs - 24 hr 11/29/23 13:53 11/29/23 16:33 11/29/23 19:33 Temperature 98.4 F 97.3 F 98.5 F Pulse Rate 65 66 55 Respiratory Rate 18 16 16 Blood Pressure 125/75 135/58 L 127/65 Pulse Oximetry 100 99 98 Oxygen Delivery Method Room Air Room Air Room Air BMI result Body Mass Index 45.2 Appearance: Alert.?Oriented to person, place and time. No acute distress.?Normal affect. Eyes: Pupils equal, round and reactive to light.? EOMI. No nystagmus. ENT: Pharynx normal.?? Neck: Normal inspection.? Neck supple.??Full range of motion. No rigidity. CVS: Heart sounds normal. Normal heart rate and rhythm.? Pulses normal.?? Respiratory: No respiratory distress.? Lung sounds clear to auscultation bilaterally?? Abdomen: Soft and non-tender. Normoactive bowel sounds. Skin: Skin warm and dry.? Normal skin color.? Extremities: No lower extremity edema.? No calf ttp? Neuro: Moves all extremities spontaneously. Sensation intact bilaterally. CN II- XII intact. No focal neuro deficits. Ambulates with normal steady gait. Course Course Course Narrative: RME, this is a rapid medical exam performed by Gibran Reddy please refer to primary provider for complete H&P- 33-year-old female presents for evaluation of headache, nausea and facial pain. She describes the pain as pressure. Symptoms started about 1 week ago. Plan for viral swabs. She was well-appearing with no neuro deficits Medications Administered Discontinued Medications Generic Name Dose Route Start Last Admin Trade Name Freq PRN Reason Stop Dose Admin Ketorolac Tromethamine 15 mg 11/29/23 16:47 11/29/23 17:02 Ketorolac Tromethamine 15 Mg/Ml Vial IM 11/29/23 16:48 15 mg ONCE ONE Administration Medical Decision Making Medical Decision Making MDM Narrative: Patient is a 33-year-old female with past medical history of obesity sending to emergency department for evaluation of a headache as per HPI. Overall she appears well, nontoxic, afebrile. Has no associated URI symptoms, she does have some mild tenderness upon palpation over the forehead/frontal sinuses but no associated URI symptoms to suggest acute sinusitis, no recent URI symptoms. Has associated dizziness and blurred vision. No focal neurological deficits on examination. Will obtain head CT to exclude intracranial mass, lower suspicion for ICH, SDH, CVA. CT head negative for acute intracranial abnormality, fluid noted within the right ear canal, no evidence of acute otitis media on examination. Suspect that symptoms are secondary to rhino sinusitis, turbinates are boggy, discussed use of OTC antihistamine and Flonase spray, outpatient follow-up with primary care doctor. Differential Diagnosis Differential Diagnoses: The differential diagnosis associated with the presentation includes (See narrative above) Admission/Observation Consideration of admission/observation: Escalation of care including admission/observation considered (See narrative above and course narrative for further detail) Lab Data MDM Lab Attestation statement: I reviewed the patient's lab results. (Viral serologies negative) Labs: Lab Results 11/29/23 Range/Units 14:08 Influenza Type A (PCR) NEGATIVE (Negative) Influenza Type B (PCR) NEGATIVE (Negative) RSV RNA Qual (PCR) NEGATIVE (Negative) SARS-CoV-2 RNA (RT-PCR) NEGATIVE (Negative) Independent Interpretation I performed an independent interpretation of an: CT Scan (No ICH or intracranial mass) Radiology Impression Discussion of test interpretation with radiology: I have reviewed the radiologist's reading. Radiologist Impression: CT/CT head/brain wo IV con IMPRESSION: 1. No evidence of acute intracranial hemorrhage or edematous territorial infarction. 2. Moderate fluid within the right middle ear cavity. Prescription Management I considered prescription management with: Pain Medication and Other (Senior) Chronic Conditions Patient?s care impacted by: Other (Obesity) Discharge Plan Discharge Clinical Impression: Sinusitis Patient Disposition: Home, Self-Care Additional Instructions: Head CT shows no abnormality such as a brain mass or bleeding which is very reassuring. As discussed, the pressure is likely due to inflammation in the sinuses. I recommend taking a daily allergy pill; cetirizine in addition to Flonase nasal spray decrease the fluid in the sinuses. You can take ibuprofen 200 mg, 3 tablets (600mg) every 6-8 hours as needed for pain, in addition to Tylenol 500 mg, 2 tablets (1,000mg) every 4-6 hours as needed for pain, but not to exceed 3 doses daily (3,000mg).? Follow-up with your primary care doctor Prescriptions: New cetirizine 10 mg tablet 10 mg PO DAILY Qty: 10 0RF fluticasone propionate [Flonase Allergy Relief] 50 mcg/actuation spray,suspension 1 spray intranasal BID 14 Days Qty: 16 0RF Rx Instructions: administer into each nostril No Action cholecalciferol (vitamin D3) 125 mcg (5,000 unit) capsule 125 mcg PO DAILY 90 Days Qty: 90 1RF cyanocobalamin (vitamin B-12) 500 mcg tablet 500 mcg PO DAILY 90 Days Qty: 90 0RF vitamin A palmitate 3,000 mcg (10,000 unit) capsule 3,000 mcg PO DAILY 90 Days Qty: 90 0RF cyclobenzaprine 10 mg tablet 10 mg PO BEDTIME PRN (Reason: muscle spasm) Qty: 7 0RF lidocaine 5 % adhesive patch,medicated 1 patch topical DAILY PRN (Reason: pain) Qty: 15 0RF Rx Instructions: leave on most painful area for up to 12 hrs Referrals: Jie Floyd PA-C [Primary Care Provider] - Print Language: Czech
[2023-11-29 14:57] LABS: Influenza A PCR NEGATIVE (Negative); Influenza B PCR NEGATIVE (Negative); Resp Syncy Virus RNA Qual PCR NEGATIVE (Negative); SARS COV2 PCR INHOUSE NEGATIVE (Negative)
[2023-11-29 16:33] VITALS: BP 135/58; PULSE 66; RESP 16; TEMP 36.3; O2SAT 99
[2023-11-29] MEDS: Ketorolac Tromethamine 15 MG/ML VIAL IM (17:02)
[2023-11-29 19:33] VITALS: BP 127/65; PULSE 55; RESP 16; TEMP 36.9; O2SAT 98
[2023-11-29 20:05] VITALS: BP 127/65; PULSE 55; RESP 16; TEMP 36.9; O2SAT 98
== END 2023-11-29 20:10 | disposition home or self-care (01) ==
PROVIDERS: Physician Assistant; Emergency Provider Internal Medicine; PCP Physician Assistant
DX: J32.1 Chronic frontal sinusitis (principal); R51.9 Headache, unspecified; Z79.899 Other long term (current) drug therapy; Z03.818 Encounter for observation for suspected exposure to other biological agents ruled out
CPT/HCPCS: 0241U; 70450; 96372; 99283; 99284; J1885